=== PATIENT | female | born 1975 | race African-American/Black ===

== ENCOUNTER 2019-12-12 07:14 | Emergency (ER) | payer SELFPAY ==
[~2019-12-12] VITALS: Ht 180.3 cm; Wt 127.0 kg
[~2019-12-12 07:14] MED LIST: IBUPROFEN600 MG ORAL; ROBAXIN-750750 MG PO
[2019-12-12 07:31] VITALS: BP 115/76
--- NOTE | 2019-12-12 07:32 | NUR ---
ED Nurse Note: Patient walked into ED from home c/o left lower quadrant abdominal pain started 12/10/19. patient report 5/10 pain. patient denies any n/v/d. patient able to provide urine sample. patient provided with hospital gown.
--- NOTE | 2019-12-12 07:48 | NUR ---
HAND-OFF: Report given to Kimber NINO.
--- NOTE | 2019-12-12 08:00 | Emergency Room Report ---
History of Present Illness General Chief Complaint: Abdominal Pain Source: Patient Present Illness HPI Patient 44-year-old female presents after increased left lower abdominal pain for the past 2 days. She reports having decreased bowel movements for the past 2 days. Pain is worse with movement. She had taken Tylenol without any relief. Denies prior symptoms in the past. She is having regular menses. She reports taking Plan B pill after unprotected intercourse. Denies any vomiting. She reports having decreased flatus and decreased bowel movements. She denies any prior medical history of vaginal discharge. COVID-19 risk:Contact w/high r: No COVID-19 risk:Travel to affect: No Has patient experienced blankenship: No Allergies: Coded Allergies: No Known Allergies (Unverified , 08/25/14) Patient History Last Menstrual Period: 11/18/19 Now: No Reviewed Nursing Documentation: PMH: Agreed; PSxH: Agreed Nursing Documentation-PMH Past Medical History: No Stated History Review of Systems All Other Systems: negative except mentioned in HPI Physical Exam Vital Signs Date Time Temp Pulse Resp B/P (MAP) Pulse Ox O2 Delivery O2 Flow Rate FiO2 12/12/19 07:31 98.1 90 17 115/76 (89) 98 Room Air Sp02 EP Interpretation: reviewed, normal General Appearance: normal inspection, well appearing, no apparent distress, alert, GCS 15, obese Head: atraumatic ENT: normal ENT inspection, hearing grossly normal, normal voice Neck: normal inspection, full range of motion, supple, no bony tend Respiratory: normal inspection, lungs clear, normal breath sounds, no respiratory distress, no retraction, no wheezing Cardiovascular #1: regular rate, rhythm, no edema Gastrointestinal: normal inspection, normal bowel sounds, non tender, soft, no guarding, no hernia, other - enlarged uterus Genitourinary: no CVA tenderness Musculoskeletal: normal inspection, back normal, normal range of motion Neurologic: alert, oriented x3, responsive, speech normal, normal inspection Psychiatric: normal inspection, judgement/insight normal, mood/affect normal Medical Decision Making Diagnostic Impression: Primary Impression: Fibroid uterus Additional Impression: Leukocytosis ER Course Patient presented for abdominal pain. Differential diagnosis include was not limited to urinary tract infection, pelvic inflammatory disease, fibroid uterus , ectopic , diverticulitis among others. Because of complexity of patient's case laboratory tests and imaging studies were ordered. Pelvic ultrasound was ordered due to patient's left lower abdominal pain. Bedside ultrasound did not show any evidence of free fluid.Abdominal ultrasound read by radiology showed fibroid uterus without evident free fluid bilateral ovaries showed dopplerable flow. Patient was given IV antibiotics as well as pain medications. She was given prescription for medications for antibiotics. Patient was advised to follow-up with [facility] for recheck. She is advised to return if worse. Labs Test 12/12/19 08:10 White Blood Count 15.7 K/UL (4.8-10.8) Red Blood Count 4.30 M/UL (4.20-5.40) Hemoglobin 10.3 G/DL (12.0-16.0) Hematocrit 32.5 % (37.0-47.0) Mean Corpuscular Volume 76 FL (80-99) Mean Corpuscular Hemoglobin 24.0 PG (27.0-31.0) Mean Corpuscular Hemoglobin Concent 31.6 G/DL (32.0-36.0) Red Cell Distribution Width 15.0 % (11.6-14.8) Platelet Count 476 K/UL (150-450) Mean Platelet Volume 5.9 FL (6.5-10.1) Neutrophils (%) (Auto) 68.1 % (45.0-75.0) Lymphocytes (%) (Auto) 19.7 % (20.0-45.0) Monocytes (%) (Auto) 10.5 % (1.0-10.0) Eosinophils (%) (Auto) 1.1 % (0.0-3.0) Basophils (%) (Auto) 0.6 % (0.0-2.0) Prothrombin Time 11.0 SEC (9.30-11.50) Prothromb Time International Ratio 1.0 (0.9-1.1) Activated Partial Thromboplast Time 31 SEC (23-33) Urine Color Pale yellow Urine Appearance Clear Urine pH 6 (4.5-8.0) Urine Specific [place] 1.015 (1.005-1.035) Urine Protein 2+ (NEGATIVE) Urine Glucose (UA) Negative (NEGATIVE) Urine Ketones Negative (NEGATIVE) Urine Blood 5+ (NEGATIVE) Urine Nitrite Negative (NEGATIVE) Urine Bilirubin Negative (NEGATIVE) Urine Urobilinogen Normal MG/DL (0.0-1.0) Urine Leukocyte Esterase Negative (NEGATIVE) Urine RBC 20-30 /HPF (0 - 2) Urine WBC 0-2 /HPF (0 - 2) Urine Squamous Epithelial Cells Moderate /LPF (NONE/OCC) Urine Bacteria Few /HPF (NONE) Urine HCG, Qualitative Negative (NEGATIVE) Sodium Level 136 MMOL/L (136-145) Potassium Level 3.4 MMOL/L (3.5-5.1) Chloride Level 102 MMOL/L (98-107) Carbon Dioxide Level 22 MMOL/L (21-32) Anion Gap 12 mmol/L (5-15) Blood Urea Nitrogen 9 mg/dL (7-18) Creatinine 0.9 MG/DL (0.55-1.30) Estimat Glomerular Filtration Rate > 60 mL/min (>60) Glucose Level 86 MG/DL (74-106) Calcium Level 8.6 MG/DL (8.5-10.1) Total Bilirubin 0.5 MG/DL (0.2-1.0) Aspartate Amino Transf (AST/SGOT) 15 U/L (15-37) Alanine Aminotransferase (ALT/SGPT) 24 U/L (12-78) Alkaline Phosphatase 56 U/L (46-116) Total Protein 8.3 G/DL (6.4-8.2) Albumin 3.2 G/DL (3.4-5.0) Globulin 5.1 g/dL Albumin/Globulin Ratio 0.6 (1.0-2.7) Lipase 81 U/L (73-393) Last Vital Signs Date Time Temp Pulse Resp B/P (MAP) Pulse Ox O2 Delivery O2 Flow Rate FiO2 12/12/19 07:47 90 17 Room Air 12/12/19 07:31 98.1 115/76 98 Status: improved Disposition: HOME, SELF-CARE Condition: Stable Scripts Hydrocodone Bit/Acetaminophen 5-325* (NORCO 5-325 TABLET*) 1 Each Tablet 1 TAB ORAL Q6H PRN for FOR PAIN, #10 TAB 0 Refills Prov: Ricco Sorto MD 12/12/19 Doxycycline Monohydrate* (DOXYCYCLINE MONOHYDRATE*) 100 Mg Capsule 100 MG ORAL Q12H, #14 CAP 0 Refills Prov: Ricco Sorto MD 12/12/19 Referrals: NOT CHOSEN IPA/,REFERRING (PCP) Ricco Sorto MD Dec 12, 2019 08:00
[2019-12-12 08:20] LABS: BASOPHILS % (AUTO) 0.6 % (0.0-2.0); EOSINOPHILS % (AUTO) 1.1 % (0.0-3.0); HEMATOCRIT 32.5 % (37.0-47.0); HEMOGLOBIN 10.3 G/DL (12.0-16.0); LYMPHOCYTES % (AUTO) 19.7 % (20.0-45.0); MEAN CORPUSCULAR VOLUME 76 FL (80-99); MONOCYTES % (AUTO) 10.5 % (1.0-10.0); NEUTROPHILS % (AUTO) 68.1 % (45.0-75.0); PLATELET COUNT 476 K/UL (150-450); WHITE BLOOD COUNT 15.7 K/UL (4.8-10.8)
[2019-12-12 08:43] LABS: APPEARANCE,URINE CLEAR; BILIRUBIN, URINE NEGATIVE (NEGATIVE); COLOR,URINE PALE YELLOW; GLUCOSE, URINE (UA) NEGATIVE (NEGATIVE); KETONES,URINE NEGATIVE (NEGATIVE); LEUKOCYTE ESTERASE ,URINE NEGATIVE (NEGATIVE); NITRITE,URINE NEGATIVE (NEGATIVE); PH,URINE 6 (4.5-8.0); PROTEIN,URINE 2+ (NEGATIVE); UROBILINOGEN,URINE NORMAL MG/DL (0.0-1.0)
[2019-12-12 09:25] LABS: ANION GAP 12 mmol/L (5-15); BLOOD UREA NITROGEN 9 mg/dL (7-18); CALCIUM 8.6 MG/DL (8.5-10.1); CARBON DIOXIDE 22 MMOL/L (21-32); CHLORIDE 102 MMOL/L (98-107); CREATININE 0.9 MG/DL (0.55-1.30); POTASSIUM 3.4 MMOL/L (3.5-5.1); SODIUM 136 MMOL/L (136-145)
[2019-12-12 09:29] LABS: ALANINE AMINOTRANSFERASE 24 U/L (12-78); ALBUMIN 3.2 G/DL (3.4-5.0); ALBUMIN/GLOBULIN RATIO 0.6 (1.0-2.7); ALKALINE PHOSPHATASE 56 U/L (46-116); ASPARTATE AMINO TRANSFERASE 15 U/L (15-37); BILIRUBIN,TOTAL 0.5 MG/DL (0.2-1.0)
[2019-12-12] MEDS ORDERED: DOXYCYCLINE MO100 MG ORAL (09:37)
[2019-12-12] MEDS ORDERED: NORCO 5-325 TA1 EAC1 ORAL ×2 (09:37→09:38)
[2019-12-12] MEDS ORDERED: Ketorolac 30mg Inj IV ONE (09:45)
[2019-12-12] MEDS ORDERED: cefTRIAXone 1 GM in NS 55 ML IVPB ONE (09:45)
[2019-12-12 10:16] VITALS: BP 120/81
--- NOTE | 2019-12-12 10:16 | NUR ---
ER DISCHARGE NOTE: Patient is cleared to be discharged per ERMD, pt is aox4, on room air, with stable vital signs. pt was given dc and prescription instructions, pt was able to verbalize understanding, pt id band and iv site removed without complications. pt is able to ambulate with steady gait. pt took all belongings.
--- NOTE | 2019-12-12 12:13 | Diagnostic Imaging Report ---
Indication:Lower abdominal and pelvic pain Technique: Grayscale and duplex Doppler imaging of the pelvis performed utilizing a transabdominal and endovaginal scan. Comparison: None Findings: There are multiple uterine fibroids present. The largest extends into the left adnexa and the measures approximately 7.3 cm in diameter. Endometrium is poorly seen presumably due to the fibroids. As visualized the endometrium measures about 10 mm. Uterus measures 10.3 x 7.4 x 6.2 cm. Both ovaries demonstrate dopplerable blood flow. Right ovary is 2.7 x 1.9 x 2.5 cm. Left ovary 3.2 x 2.4 x 2.6 cm. IMPRESSION: Multiple uterine fibroids
== END 2019-12-12 10:16 | disposition home or self-care (01) ==
LOC: EMR 07:43
DX: D25.9 Leiomyoma of uterus, unspecified (principal); D72.829 Elevated white blood cell count, unspecified; E66.9 Obesity, unspecified; Z68.39 Body mass index [BMI] 39.0-39.9, adult
CPT/HCPCS: 36415; 76830; 76856; 80053; 81003; 81025; 83690; 85025; 85610; 85730; 96365; 96375; 99284; J0696; J1885